=== PATIENT | male | born 1965 | race Two or more races ===

== ENCOUNTER 2018-06-06 09:00 | Outpatient (AMBR) | payer MEDICAID, OTHER, SELFPAY ==
--- NOTE | 2018-05-24 11:27 | PT.ODAYNRPT ---
PT Outpatient Daily Note Date of Service: May 24, 2018 OP Daily Note Visit Reasons: right ankle Outpatient Physical Therapy Treatment Date: 05/24/18 Subjective: About the same as time of evaluation Objective: See F/S for therex MT: STM to R ankle ant and post tibialis mm's and tendons with Graston x7' Assessment: Significant navicular drop with plantar fascia spasming, soft tissue pain and dysfunction. Plan: Continue per POC Length of Time (minutes) of Treatment: 30 Minutes Office Procedures PT Procedures PT Date of Service: 05/24/18 Therapeutic Exercise 30 minutes: Yes
--- NOTE | 2018-05-26 15:03 | PT.ODAYNRPT ---
PT Outpatient Daily Note Date of Service: May 26, 2018 OP Daily Note Visit Reasons: right ankle Outpatient Physical Therapy Treatment Date: 05/26/18 Subjective: About the same as last time Objective: See F/S for therex Assessment: Significant navicular drop with plantar fascia spasming, soft tissue pain and dysfunction that limits loading and WB tolerance on that side. Plan: Continue per POC Length of Time (minutes) of Treatment: 30 Minutes Office Procedures PT Procedures PT Date of Service: 05/24/18 Therapeutic Exercise 30 minutes: Yes PT Procedures PT Date of Service: 05/26/18 Therapeutic Exercise 30 minutes: Yes
--- NOTE | 2018-06-01 13:35 | PT.ODAYNRPT ---
PT Outpatient Daily Note Date of Service: June 01, 2018 OP Daily Note Visit Reasons: right ankle Outpatient Physical Therapy Treatment Date: 06/01/18 Subjective: The ankle and foot are about the same as last time but he c/o pain in the R buttock like an injection Objective: See F/S for therex Assessment: Significant navicular drop with plantar fascia spasming, soft tissue pain and dysfunction that limits loading and WB tolerance on that side. Slow progress with goals due to continued moderate tissue irritabilty. The AFO may not be supporting as well as when it was new. The R LE pain is consistent with piriformis tightness. Plan: Continue per POC Length of Time (minutes) of Treatment: 30 Minutes Office Procedures PT Procedures PT Date of Service: 05/24/18 Therapeutic Exercise 30 minutes: Yes PT Procedures PT Date of Service: 05/26/18 Therapeutic Exercise 30 minutes: Yes PT Procedures PT Date of Service: 06/01/18 Therapeutic Exercise 30 minutes: Yes
--- NOTE | 2018-06-06 10:50 | PT.ODAYNRPT ---
PT Outpatient Daily Note Date of Service: June 06, 2018 OP Daily Note Visit Reasons: right ankle Outpatient Physical Therapy Treatment Date: 06/06/18 Subjective: Pt c/o pain and points to the lateral malleolus and anterior TCJ. Objective: See F/S for therex MT: STM to ankle x5' Assessment: Significant navicular drop with plantar fascia spasming, soft tissue pain and dysfunction that limits loading and WB tolerance on that side. Slow progress with goals due to continued moderate tissue irritabilty. The AFO may not be supporting as well as when it was new. The R LE pain is consistent with piriformis tightness. Plan: Continue per POC Length of Time (minutes) of Treatment: 30 Minutes Office Procedures PT Procedures PT Date of Service: 05/24/18 Therapeutic Exercise 30 minutes: Yes PT Procedures PT Date of Service: 05/26/18 Therapeutic Exercise 30 minutes: Yes PT Procedures PT Date of Service: 06/01/18 Therapeutic Exercise 30 minutes: Yes PT Procedures PT Date of Service: 06/06/18 Therapeutic Exercise 30 minutes: Yes
== END 2018-06-17 23:59 | disposition home or self-care (01) ==
PROVIDERS: PCP Registered Nurse Community Health; Referring Provider Registered Nurse Community Health; Visit Provider Podiatrist Foot & Ankle Surgery
DX: M25.571 Pain in right ankle and joints of right foot (principal); R25.2 Cramp and spasm
CPT/HCPCS: 97110

== ENCOUNTER 2025-02-19 13:14 | Emergency (ER) | payer MEDICARE, MEDICAID, SELFPAY ==
[2025-02-19 13:33] VITALS: BP 129/79; PULSE 79; RESP 20; TEMP 36.9; O2SAT 99
--- NOTE | 2025-02-19 13:36 | XR_ITS ---
Examination: Venous duplex lower extremity sonogram, bilateral. Date and time of exam: February 19, 2025 1422 hours INDICATIONS: Bilateral rib this and pain in the legs beginning 3 days ago Technique: Multiple sonographic images of the deep venous system have been obtained. B-mode/2-D grayscale imaging of vascular structures and Doppler spectral analysis (waveforms) and color performed Both legs are examined. Findings: Deep venous systems do not demonstrate abnormal echogenicity. Limited visualization right posterior tibial left posterior tibial secondary to bandaging All visualized deep veins exhibit compressibility. All visualized deep veins exhibit augmentation. Impression: No DVT demonstrated
--- NOTE | 2025-02-19 13:36 | PD.EDRME ---
Rapid Medical Screening Exam RME Arrival date/time: 02/19/25 13:14 60-year-old male presents to the emergency department for complaints of bilateral lower extremity swelling Chief Complaint: Extremity Injury, Lower
--- NOTE | 2025-02-19 13:37 | XR_ITS ---
Examination: Foot bilateral, 6 views Technique: AP, oblique, lateral views each foot total 6 views Date and time of exam: February 19, 2025 1339 hours INDICATIONS: Bilateral foot swelling beginning 3 days ago. FINDINGS: Severe osteopenia Soft tissue vascular calcification Talar tarsal fusion on the right Moderate right tibial talar joint osteoarthritis Soft tissue swelling surrounding the left foot No acute fractures No cortical bone destruction IMPRESSION: No john cortical bone destruction
[2025-02-19 14:33] LABS: Lactate (Lactic Acid) 1.2 mMol/L (0.4-2.0)
[2025-02-19 14:38] LABS: Basophils # (Auto) 0.1 Thou/mm3 (0.0-0.2); Basophils % (Auto) 1 % (0-2.5); Eosinophils # (Auto) 0.2 Thou/mm3 (0.0-0.5); Eosinophils % (Auto) 3 % (0-10); Hematocrit 36.4 % (41.0-53.0); Hemoglobin 13.1 g/dL (13.5-16.0); Immature Granulocytes % (Auto) 0 % (0-0); Immature Granulocytes Auto 0.02 Thou/mm3 (0.00-0.00); Lymphocytes # (Auto) 1.7 Thou/mm3 (1.0-4.8); Lymphocytes % (Auto) 30 % (10-50); Mean Corpuscular Hemoglobin 32.9 pg (25.0-35.0); Mean Corpuscular Volume 92 fL (80-100); Monocytes # (Auto) 0.7 Thou/mm3 (0.0-0.8); Monocytes % (Auto) 12 % (0-12); Neutrophils # (Auto) 3.1 Thou/mm3 (1.8-7.7); Neutrophils % (Auto) 54 % (37-80); Nucleated Red Blood Cell % 0 /100 WBC (0); Platelet Count 215 Thou/mm3 (140-440); RDW Standard Deviation 40.4 fL (35.1-43.9); Red Blood Count 3.98 Miln/mm3 (4.50-5.90); White Blood Count 5.7 Thou/mm3 (3.8-10.6)
[2025-02-19 14:57] LABS: INR 0.9 (0.9-1.3); Prothrombin Time 10.4 Seconds (9.0-12.2)
[2025-02-19 15:01] LABS: Sed Rate (ESR) 17 mm/hr (0-20)
[2025-02-19 15:36] LABS: Alanine Aminotransferase 16 U/L (10-49); Albumin, Serum 4.4 gm/dL (3.4-4.8); Albumin/Globulin Ratio 1.7 (1.2-2.2); Alkaline Phosphatase 139 U/L (46-116); Anion Gap 6 (7-16); Aspartate Amino Transferase 17 U/L (0-34); BUN/Creatinine Ratio 12 Ratio (12-20); Bilirubin,Total 0.5 mg/dL (0.3-1.2); Blood Urea Nitrogen 13 mg/dL (9-23); Calcium 9.2 mg/dL (8.3-10.6); Calcium (Corrected) 9.2 mg/dL (8.5-10.1); Carbon Dioxide 26.8 mMol/L (20.0-31.0); Chloride 103 mMol/L (98-107); Creatinine (Component) 1.1 mg/dL (0.6-1.3); Estimated Creatinine Clearance 79.4 mL/min (>60); Globulin 2.6 gm/dL (2.3-3.5); Glucose 143 mg/dL (74-106); Osmolality,Calculated 274 (275-295); Potassium 3.7 mMol/L (3.4-5.1); Procalcitonin 0.07 ng/ml (0.0-0.49); Sodium 136 mMol/L (136-145); eGFR > 60 See Note
[2025-02-19 15:48] LABS: C-Reactive Protein 0.7 mg/dL (0.0-0.9)
[2025-02-19 18:41] VITALS: BP 157/88; PULSE 78; RESP 20; TEMP 36.6; O2SAT 100
[2025-02-19 19:09] VITALS: BP 163/92; PULSE 70; RESP 18; TEMP 36.6; O2SAT 100
--- NOTE | 2025-02-19 19:29 | PD.EDADULT ---
ED General RME/HPI General Chief complaint: Extremity Injury, Lower Stated complaint: BLE SWELLING W/ REDNESS & PAIN X 3 DAYS Time Seen by Provider: 02/19/25 19:08 Arrival date/time: 02/19/25 13:14 CC: Lower extremity edema HPI ongoing for the past 3 to 4 days with progressive increasing worsening. The patient has had it for longer but it typically resolves in the morning. For the past 3 days the patient has had no decrease in swelling. Patient denies shortness of breath difficulty breathing or chest pain. RME / HPI RME / HPI narrative: 02/19/25 13:14 60-year-old male presents to the emergency department for complaints of bilateral lower extremity swelling Related Data Home Medications ?Medication ?Instructions ?Recorded ?Confirmed metformin 500 mg tablet 500 mg PO DAILY 10/13/21 09/27/23 metoprolol tartrate 25 mg tablet 12.5 mg PO QDAY 10/13/21 10/13/21 omeprazole 20 mg capsule,delayed 20 mg PO QDAY 10/13/21 09/27/23 release paroxetine HCl 10 mg tablet (Paxil) 10 mg PO QDAY 10/13/21 10/13/21 tamsulosin 0.4 mg capsule (Flomax) 0.4 mg PO DAILY 10/13/21 09/27/23 albuterol sulfate 90 mcg/actuation 2 puff inhalation Q4HR PRN 09/27/23 aerosol inhaler shortness of breath or wheezing buspirone 15 mg tablet 15 mg PO BID PRN Anxiety 09/27/23 09/27/23 cholecalciferol (vitamin D3) 50 50 mcg PO DAILY 09/27/23 09/27/23 mcg (2,000 unit) capsule duloxetine 30 mg capsule,delayed 30 mg PO BID 09/27/23 release lisinopril 20 mg tablet 20 mg PO DAILY 09/27/23 09/27/23 pravastatin 40 mg tablet 40 mg PO ONCE PM 09/27/23 quetiapine 25 mg tablet 25 mg PO HS 09/27/23 09/27/23 Previous Rx's ?Medication ?Instructions ?Recorded gabapentin 300 mg capsule 300 mg PO TID 30 days #90 caps 09/28/23 cephalexin 500 mg capsule 500 mg PO QID #28 caps 10/17/23 furosemide 40 mg tablet (Lasix) 40 mg PO QAM #3 tabs 02/19/25 Allergies Allergy/AdvReac Type Severity Reaction Status Date / Time No Known Allergies Allergy Verified 02/19/25 13:18 Review of Systems Review of Systems Narrative Review of Systems: GEN: No fever, no chills, no weight loss EYES: No discharge, no visual changes, no pain HEENT: No ear pain, no congestion, no sore throat PULM: No shortness of breath, no cough, no congestion CV: No chest pain, no dyspnea on exertion, no palpitations GI: No nausea, no vomiting, no diarrhea, no pain, no constipation : No frequency, no urgency, no dysuria MUSC/SKEL: No joint pain, no back pain, + leg swelling SKIN: No rash PSYCH: No hallucinations, no depression HEME/LYMPH: No easy bleeding or bruising tendencies NEURO: No weakness, no headache Past Medical History Past Medical History NEUROLOGIC: Positive Neurological Disorders, Dementia ( early-onset dementia ), 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, reports peripheral tingling) and Migraine; Negative Seizures CARDIAC: Positive Hypercholesterolemia, Hypertension and Varicose Veins; Negative Cardiac Disorders, Congestive Heart Failure, Edema or Cellulitis RESPIRATORY: Positive Asthma and Pneumonia (COVID Oct-Nov 2020); Negative Chronic Obstructive Pulmonary Disease (COPD) or Tuberculosis GASTROINTESTINAL: Positive Gastrointestinal Disorders, Diverticulosis, Ulcer, Hiatal Hernia, Hemorrhoids and Gastroesophageal Reflux Disease; Negative Hepatitis GENITOURINARY: Positive Genitourinary Disorders and Benign Prostatic Hyperplasia; Negative Renal Disease MUSCULOSKELETAL: Positive Musculoskeletal Disorders, Arthritis and Degenerative Joint Disease ENDOCRINE: Positive Endocrine Disorders and Diabetes Mellitus Type 2; Negative Diabetes Mellitus Type 1 HEMATOLOGIC: Negative Blood Disorders or Sickle Cell Disease PSYCHO/SOCIAL: Positive Recreational Drug Use, Depression and Anxiety OTHER HISTORY: Positive Hospitalization, Shingles (started 09/20/23) and Falls (dizzy, lost balance a lot.); Negative Autoimmune Disease, Blood Transfusions (received covid ffp), Blood Transfusion Reaction, Anesthesia Reactions, Chemotherapy, Radiation Therapy, MRSA, Chicken Pox, Measles, Mumps or Cancer Family History FAMILY HISTORY: Positive Family Surgery (father had stents placed, mother had open heart surgery for clogged arterie); Negative Family Psychiatric Problems, Family Respiratory Disorders, Family Cardiac Disorders, Family Gastrointestinal Problems, Family Cancer or Family Anesthesia Reaction Surgical History SURGICAL: Positive Angiogram, Nose Surgery (broke and fixed, broke again- no surgery.), Abdominal Surgery (appendectomy), Joint Replacement, Open Reduction Internal Fixation and Arthroscopy; Negative Cardiac Surgery, Pacemaker or Endocrine Surgery Social History SMOKING STATUS: Never smoker SECOND HAND EXPOSURE: No (chew 2 tobacco x40yrs on and off- NOW 2x/month) SUBSTANCE USE: does not use ED Exam Narrative Physical exam: [General: Obese, not in any acute distress Head normocephalic HEENT: Within acceptable limits Neck is supple nontender Chest equal chest rise nontender to palpation Respiratory: Clear to auscultation no wheezes crackles or rubs CV: Rate rhythm is regular no murmurs rubs or clicks Abdomen is distended secondary to body habitus soft nontender no masses positive bowel sounds all 4 quadrants Back: No CVA tenderness no spinous process tenderness from cervical spine thoracic and lumbar spine Skin: Intact no petechiae rash induration ulceration or crepitus Extremities: Moving all extremity against resistance cap refill less than 2 seconds neurosensory intact. 2+ pitting edema both lower extremities including the dorsum of foot that goes to just distal of the knee. Patient has full range of motion of the lower extremities. Neuro: Awake alert oriented x3 Glascow coma 15 no focal deficits] Course Quality Measures none Orders Category Date Time Status US venous doppler LE BI Stat Exams 02/19/25 13:36 Completed XR foot comp BI min 3V Stat Exams 02/19/25 13:37 Completed Blood Culture (Lab) Stat Lab 02/19/25 14:20 Received CBC Stat Lab 02/19/25 14:20 Completed CMP [Comprehensive Metabolic Panel] Stat Lab 02/19/25 14:20 Completed CRP [C-Reactive Protein] Stat Lab 02/19/25 14:20 Completed ESR [Sed Rate (ESR)] Stat Lab 02/19/25 14:20 Completed Lactic Acid [Lactate (Lactic Acid)] Stat Lab 02/19/25 14:20 Completed PT [Prothrombin Time with INR] Stat Lab 02/19/25 14:20 Completed PTT [Partial Thromboplastin Time] Stat Lab 02/19/25 14:20 Completed Procalcitonin Stat Lab 02/19/25 14:20 Completed Vital Signs Vital signs: Vital Signs Temperature 98.5 F 02/19/25 13:33 Pulse Rate 79 02/19/25 13:33 Respiratory Rate 20 02/19/25 13:33 Blood Pressure 129/79 02/19/25 13:33 Pulse Oximetry (%) 99 02/19/25 13:33 Oxygen Delivery Method Room Air 02/19/25 13:33 Discharge Plan Plan Patient Disposition: HOME (Self Care) Patient condition on transfer: Stable Prescriptions/Referrals Prescriptions/Med Rec: New furosemide [Lasix] 40 mg tablet 40 mg PO QAM Qty: 3 0RF No Action metformin 500 mg Tablet 500 mg PO DAILY Rx Instructions: with a meal paroxetine HCl [Paxil] 10 mg Tablet 10 mg PO QDAY tamsulosin [Flomax] 0.4 mg Capsule 0.4 mg PO DAILY omeprazole 20 mg Capsule,Delayed Release(Dr/Ec) 20 mg PO QDAY metoprolol tartrate 25 mg Tablet 12.5 mg PO QDAY cephalexin 500 mg capsule 500 mg PO QID Qty: 28 0RF lisinopril 20 mg tablet 20 mg PO DAILY duloxetine 30 mg capsule,delayed release(DR/EC) 30 mg PO BID pravastatin 40 mg tablet 40 mg PO ONCE PM Rx Instructions: Daily in Evening quetiapine 25 mg tablet 25 mg PO HS buspirone 15 mg tablet 15 mg PO BID PRN (Reason: Anxiety) albuterol sulfate 90 mcg/actuation HFA aerosol inhaler 2 puff inhalation Q4HR PRN (Reason: shortness of breath or wheezing) Rx Instructions: or prn cough 108(90 base) mcg/act cholecalciferol (vitamin D3) 50 mcg (2,000 unit) capsule 50 mcg PO DAILY gabapentin 300 mg capsule 300 mg PO TID 30 Days Qty: 90 3RF Referrals: Crystal Guardado HOME ENERGY CONSULTANT SUPERVISOR [Primary Care Provider] - In 1 week Problem List Clinical Impression: Bilateral edema of lower extremity Patient/Caregiver Discharge Instructions Other Activity Instructions:: Take the medications as prescribed each morning in the morning. Expect to be urinating once an hour for the next 8 to 12 hours each time. When you sleep at nighttime take all wrappings off your legs, and elevate your legs above the level of your heart. During the daytime try the knee-high stockings instead of compression stockings. Follow-up with your primary care doctor do daily weights in the morning prior to taking your pill. If there is worsening of symptoms or abrupt onset of shortness of breath return immediately to the emergency room for both further evaluation. Education Materials: ED Leg Swelling in Both Legs Print Language: Liberian Stand Alone Forms: Britt Award Info., Patient Portal Info Letter, Work/School Release PA/ARMATURE COIL WINDER Supervising Physician PA/[employer] W[employer]ER Supervising Physician: Narinder Gomes ENP
== END 2025-02-19 20:12 | disposition home or self-care (01) ==
PROVIDERS: Nurse Practitioner Primary Care; Emergency Provider Emergency Medicine; PCP Nurse Practitioner Women's Health
DX: R60.0 Localized edema (principal); M79.605 Pain in left leg; M79.604 Pain in right leg
CPT/HCPCS: 36415; 73630; 80053; 83605; 84145; 85025; 85610; 85652; 85730; 86140; 87040; 93970; 99284

== ENCOUNTER → 2025-05-30 | Outpatient (CLI) | payer MEDICARE, MEDICAID, SELFPAY ==
--- NOTE | 2025-05-30 10:32 | XR_ITS ---
Examination: Wrist, left 3 views Technique: Wrist AP, oblique, lateral 3 views Date and time of exam: May 30, 2025 10:39 AM INDICATIONS: Injury to the wrist one month ago, wrist pain FINDINGS: At least 4 minute opaque foreign bodies in the soft tissue between the first and second metacarpals Moderate osteoarthritis first carpometacarpal joint Moderate narrowing radiocarpal joint Old ununited ulnar styloid tip fracture IMPRESSION: Positive for minute opaque foreign bodies as above
--- NOTE | 2025-05-30 10:32 | XR_ITS ---
Examination: Hand, left 3 views Technique: Hand AP, oblique, lateral 3 views Date and time of exam: May 30, 2025 1039 hours INDICATIONS: Injury to the hand one month ago with hand pain. FINDINGS: Moderate osteopenia Moderate osteoarthritis first carpometacarpal joint Mild to moderate osteoarthritis distal interphalangeal joints second through fifth digits and interphalangeal joint first digit No erosive arthritis 2 minute opacities each 1 mm in the soft tissue between the first and second metacarpals IMPRESSION: Tiny opaque foreign bodies in the soft tissue between the first and second metacarpals
== END | disposition home or self-care (01) ==
PROVIDERS: PCP Nurse Practitioner Gerontology; Referring Provider Nurse Practitioner Gerontology; Visit Provider Nurse Practitioner Gerontology
DX: S60.552A Superficial foreign body of left hand, initial encounter (principal); X58.XXXA Exposure to other specified factors, initial encounter
CPT/HCPCS: 73110; 73130

== ENCOUNTER 2025-09-18 12:10 | Day surgery (SDC) | payer MEDICARE, MEDICAID, SELFPAY ==
--- NOTE | 2025-09-12 09:04 | EKG_ITS ---
[facility] Test Date: 2025-09-12 Pat Name: PALMA DE Department: Room: - Gender: Male Car Sales Associate: ESTEFANY : 1965 Requested By: Delisa Martinez Order Number: [id number] Reading MD: Delisa Martinez Measurements Intervals [place] Rate: 100 P: 60 NM: 156 QRS: -49 QRSD: 98 T: 38 QT: 346 QTc: 448 Interpretive Statements SINUS TACHYCARDIA LEFT ANTERIOR FASCICULAR BLOCK [QRS AXIS <= -45, QR IN I, RS IN II] MINIMAL VOLTAGE CRITERIA FOR LVH, CONSIDER NORMAL VARIANT [MEETS CRITERIA IN ONE OF: R(aVL), S(V1), R(V5), R(V5/V6)+S(V1)] Compared to ECG 11/13/2020 17:39:36 Left anterior fascicular block now present Left-axis deviation no longer present /store/S0/[id number]/[id number].pdf
[2025-09-12 10:51] VITALS: BMI 35.5
[2025-09-12 12:24] LABS: Basophils # (Auto) 0.1 Thou/mm3 (0.0-0.2); Basophils % (Auto) 1 % (0-2.5); Eosinophils # (Auto) 0.1 Thou/mm3 (0.0-0.5); Eosinophils % (Auto) 2 % (0-10); Hematocrit 43.2 % (41.0-53.0); Hemoglobin 14.7 g/dL (13.5-16.0); Immature Granulocytes Auto 0.02 Thou/mm3 (0.00-0.00); Lymphocytes # (Auto) 1.4 Thou/mm3 (1.0-4.8); Lymphocytes % (Auto) 25 % (10-50); Mean Corpuscular HGB Conc 34.0 g/dl (31.0-37.0); Mean Corpuscular Hemoglobin 32.3 pg (25.0-35.0); Mean Corpuscular Volume 95 fL (80-100); Monocytes # (Auto) 0.6 Thou/mm3 (0.0-0.8); Monocytes % (Auto) 10 % (0-12); Neutrophils # (Auto) 3.5 Thou/mm3 (1.8-7.7); Neutrophils % (Auto) 62 % (37-80); Nucleated Red Blood Cell # 0.00 Thou/mm3 (0.00-0.00); Nucleated Red Blood Cell % 0 /100 WBC (0); Platelet Count 249 Thou/mm3 (140-440); RDW Standard Deviation 39.7 fL (35.1-43.9); Red Blood Count 4.55 Miln/mm3 (4.50-5.90); White Blood Count 5.7 Thou/mm3 (3.8-10.6)
[2025-09-12 12:36] LABS: Alanine Aminotransferase 21 U/L (10-49); Albumin, Serum 5.0 gm/dL (3.4-4.8); Albumin/Globulin Ratio 1.7 (1.2-2.2); Alkaline Phosphatase 119 U/L (46-116); Anion Gap 10 (7-16); Aspartate Amino Transferase 24 U/L (0-34); BUN/Creatinine Ratio 10 Ratio (12-20); Bilirubin,Total 0.5 mg/dL (0.3-1.2); Blood Urea Nitrogen 12 mg/dL (9-23); Calcium 9.7 mg/dL (8.3-10.6); Calcium (Corrected) 9.7 mg/dL (8.5-10.1); Carbon Dioxide 28.6 mMol/L (20.0-31.0); Chloride 102 mMol/L (98-107); Creatinine (Component) 1.2 mg/dL (0.6-1.3); Estimated Creatinine Clearance 73.0 mL/min (>60); Globulin 2.9 gm/dL (2.3-3.5); Glucose 218 mg/dL (74-106); Osmolality,Calculated 287 (275-295); Potassium 3.6 mMol/L (3.4-5.1); Sodium 141 mMol/L (136-145); Total Protein 7.9 gm/dL (5.7-8.2); eGFR > 60 See Note
[2025-09-18] VITALS (9 sets, daily range): BP systolic 102–133; BP diastolic 56–88; PULSE 72–93; RESP 12–20; TEMP 36.4–36.8; O2SAT 96–99; BMI 34.9
--- NOTE | 2025-09-18 14:27 | PD.SUROPNT ---
Date of Procedure 09/18/25 Pre Op Diagnosis Incarcerated umbilical hernia Post Op Diagnosis Incarcerated umbilical hernia Procedure Laparoscopy, primary repair of incarcerated umbilical hernia Findings 1 cm umbilical hernia defect with incarcerated preperitoneal fat Procedure Description Patient brought into the operating room in supine position. After administration of general orotracheal anesthesia, patient's abdomen prepped and draped in standard surgical manner. A 5 mm incision was made in left upper quadrant and Veress needle was inserted, pneumoperitoneum was obtained to 15 mmHg. The Veress needle was removed and a 5 mm trocar was placed. Laparoscopic camera was inserted and the abdominal cavity was inspected. Patient was noted to have an umbilical hernia with incarcerated preperitoneal fat, there was no evidence of omental or bowel incarceration. Because the defect was small, I elected to primarily repair it. Laparoscopic camera was removed, pneumoperitoneum was evacuated and trocar was removed. After administration of local anesthesia 3 cm semicircular incision was made above the umbilicus and dissection was deepened into soft tissue. The umbilicus was detached from anterior abdominal fascia. The sac was circumferentially dissected off surrounding tissue. The hernia sac was opened, the content was incarcerated preperitoneal fat. The hernia sac along with incarcerated preperitoneal fat were excised. The fascia was cleared. The defect was approximately 1 cm. It was primarily closed with interrupted sutures using 0 Ethibond. The umbilicus was reattached into anterior abdominal fascia. Soft tissue reapproximated with interrupted sutures using 2-0 Vicryl, and the incisions closed 4-0 Monocryl subcuticular fashion. Instruments, needles and sponge counts were reported to be correct ?2. Patient tolerated the procedure well. Patient was extubated, breathing spontaneously and without difficulty and was transferred to postanesthesia care in stable condition. Anesthesia GETA and local Pathology / specimen Other (Hernia sac and contents) Estimated Blood Loss 5 Condition Stable Disposition PACU Surgeon Delisa Martinez MD Surgical Staff Operation Date: 09/18/25 14:45 Case Staff Anesthesiologist: Ricardo Jaramillo RN First Assistant: Yudy Noel
--- NOTE | 2025-09-18 14:32 | SUR.PHASEI ---
1432: Pt. wakes to name then drifts back to sleep, vitals stable, breathing unlabored, no complaint of pain or nausea, dressing to umbilicus CDI, no active bleed noted, report received from MD Jaramillo and Jennifer CHAVES.
[2025-09-18] MEDS: MORPHINE SULF INJ 4 MG/ML VIAL 3 MG IV (15:32)
--- NOTE | 2025-09-18 15:57 | SUR.PHASEII ---
1557: Pt. AAOx4, vitals stable, breathing unlabored, no complaint of pain or nausea, dressing to ABD CDI, no active bleed noted, pt. tolerated sips of water well, pt. ambulated to wheelchair with steady gait and no assist, no complications. Gave discharge instructions to the pt. and his ride, both verbalized understanding and had no further questions. Pt. left with all personal belongings.
== END 2025-09-18 15:57 | disposition home or self-care (01) ==
PROVIDERS: Anesthesiology; PCP Family Medicine; Referring Provider Surgery; Visit Provider Surgery
PROC: 0WQF4ZZ Repair Abdominal Wall, Percutaneous Endoscopic Approach (ICD-10-PCS; CPT 49592; principal; 2025-09-18 14:30)
DX: K42.0 Umbilical hernia with obstruction, without gangrene (principal); Z01.810 Encounter for preprocedural cardiovascular examination; M19.90 Unspecified osteoarthritis, unspecified site; E11.9 Type 2 diabetes mellitus without complications; F32.A Depression, unspecified; M54.9 Dorsalgia, unspecified; G89.29 Other chronic pain; K21.9 Gastro-esophageal reflux disease without esophagitis; E78.00 Pure hypercholesterolemia, unspecified; I10 Essential (primary) hypertension; Z79.899 Other long term (current) drug therapy
CPT/HCPCS: 49592; 36415; 80053; 85025; 93005; A4649; J0131; J0690; J1100; J1885; J2250; J2270; J2405; J2704; J3010; J3490